=== PATIENT | male | born 1940 | race Caucasian/White ===

== ENCOUNTER → 2016-10-16 | Day surgery (SDC) | payer OTHER ==
[~2016-10-16] MED LIST: ASPI81 PO; ATOR80TA PO; CIAL5TAB PO; LACTATED RINGER'S 1000 ML INJ 1,000 ML ONE; LIDOCAINE 1%/EPINEPHrine 1:200,000 PF SOLN 30 ML VIAL ONE; LIDOCAINE 2%/EPINEPHrine PF 1:200,000 20ML SDV ONE; LISI-363 PO; MIDAZOLAM HCL 2 MG/2 ML VIAL ONE; MSM1000C4 PO; ONDANSETRON HCL 4 MG/2 ML VIAL IV PUSH ONE; PROPOFOL 200 MG/20 ML AMP IV ONE; RANE1000 PO; [UNRECOGNIZED DRUG - CODE] PO; ceFAZolin INJ 1,000 MG VIAL ONE
--- NOTE | 2016-10-17 13:44 | MP ---
cc: CHRISTOS HU M.D. DATE OF SURGERY: 10/16/2016 PREOPERATIVE DIAGNOSIS Right carpal tunnel syndrome. POSTOPERATIVE DIAGNOSIS Right carpal tunnel syndrome. PROCEDURE Right carpal tunnel release. ANESTHESIA TIVA and local. SURGEON Christos Hu MD ESTIMATED BLOOD LOSS Minimum. TOURNIQUET TIME 11 minutes. INDICATION Nanda Hernandez is a 76-year-old male with EMG document symptomatic carpal tunnel syndrome of the right hand which is refractory to conservative care. He presents now for surgical release. Risks, benefits were thoroughly discussed. No guarantees were offered. PROCEDURE The patient was brought to the operating room. He was placed under deep anesthetic and right upper extremity was prepped and draped in usual sterile fashion. Time-out was completed. We proceeded to inject local at the planned surgical incision at the base of the palm. Inflated the tourniquet to 250 and proceeded with our base of the palm incision, taken through subcutaneous tissue, spread overlying the fascial layer then split coming down to the carpal canal, released distally with a [place] protecting between the nerve and the transverse carpal ligament, we dissected under direct visualization proximally and then confirmed complete release by being able to pass small finger to the carpal canal, injected additional numbing medication on either side of the carpal canal and then proceeded to close with absorbable sutures and Steri-Strips. Sterile dressing was applied. Sof-Rol and Antelmo wrap were applied. The tourniquet was let down. The patient was awoken and returned to the recovery room in stable condition. MD PAULIE Barney/RICK /7:47 AM /1:35 PM
== END | disposition home or self-care (01) ==
LOC: ESDC 06:17
PROVIDERS: ATTEND Orthopaedic Surgery Sports Medicine
DX: G56.01 Carpal tunnel syndrome, right upper limb (principal)
CPT/HCPCS: 01810; 64721; J0690; J2250; J2405; J3010; J7120

== ENCOUNTER 2017-01-19 00:46 | Emergency (ER) | payer OTHER ==
[~2017-01-19] VITALS: Ht 170.2 cm; Wt 71.7 kg
[~2017-01-19 00:46] MED LIST changes: -LACTATED RINGER'S 1000 ML INJ 1,000 ML ONE; -LIDOCAINE 1%/EPINEPHrine 1:200,000 PF SOLN 30 ML VIAL ONE; -LIDOCAINE 2%/EPINEPHrine PF 1:200,000 20ML SDV ONE; -MIDAZOLAM HCL 2 MG/2 ML VIAL ONE; -ONDANSETRON HCL 4 MG/2 ML VIAL IV PUSH ONE; -PROPOFOL 200 MG/20 ML AMP IV ONE; -ceFAZolin INJ 1,000 MG VIAL ONE
[2017-01-19 00:53] VITALS: BP 149/68; PULSE 81; RESP 18; TEMP 98.6; O2SAT 96
[2017-01-19] MEDS ORDERED: METO25TA3 PO (01:13)
[2017-01-19] MEDS ORDERED: TRAZ50TA12 PO (01:13)
[2017-01-19] MEDS ORDERED: OMEGCAP PO (01:13)
[2017-01-19] MEDS ORDERED: ASPI-516 CHEW (01:13)
[2017-01-19] MEDS ORDERED: FAMO20TA2 PO (01:13)
[2017-01-19] MEDS ORDERED: ATOR80TA45 PO (01:13)
[2017-01-19] MEDS ORDERED: LISI-515 PO (01:13)
[2017-01-19] MEDS ORDERED: OXYMETAZOLINE HCL 0.05% 15 ML NASAL SPRAY NASAL ONE (01:15)
[2017-01-19] MEDS ORDERED: AUGM875T3 PO (01:32)
--- NOTE | 2017-01-19 01:35 | PD ---
HPI Chief Complaint: Nosebleed Time Seen by Provider: 01:11 Travel History International Travel<30 days: No Contact w/Intl Traveler<30days: No Traveled to known affect area: No History of Present Illness HPI The patient is a 77-year-old male that for 2-3 years has had nosebleeds from his left nostril. In the last month he has had over 3 nosebleeds. This year alone he has had over 12 nosebleeds. Usually he can pinch his nose for 10 minutes and it stops but tonight this 1 Bleeding. The last time he visited the emergency department he required a balloon packing. He denies any trauma. His only anticoagulant is an 81 mg aspirin daily. His nosebleeds are always on the left. He smokes about one pack a day. PFSH Past Medical History Heart Rhythm Problems: Yes (MURMUR IN THE PAST) Cardiac Catheterization: Yes Cardiovascular Problems: Yes (AORTIC VALVE REPLACEMENT-BOVINE) High Cholesterol: Yes Congestive Heart Failure: No Diabetes: No Diminished Hearing: No GERD: Yes Heparin Induced Thrombocytopen: No Hypertension: Yes Tetanus Vaccination: Unknown Influenza Vaccination: Yes Past Surgical History Cardiac Surgery: Yes Coronary Artery Bypass Graft: No Valve Replacement: Yes (AORTIC VALVE REPLACEMENT(BOVINE), 2016) Family History Family Myocardial Infarction: Yes ( 2 BROTHERS FROM HEART ATTACKS) Social History Alcohol Use: Yes (3-4 beers, daily) Tobacco Use: Yes Substance Use: No Allergies-Medications (Allergen,Severity, Reaction): Coded Allergies: nitroglycerin (Verified Adverse Reaction, Severe, Hypotension, 01/19/17) Uncoded Allergies: blood thinner unknown one (Allergy, Severe, 01/19/17) Reported Meds & Prescriptions Reported Meds & Active Scripts Active Reported [place]-3 Fish Oil/Vitamin (Fish Oil-Cholecalciferol) 1,000-1,000 Mg Cap 1 Cap PO DAILY Trazodone (Trazodone HCl) 50 Mg Tab 50 Mg PO HS Metoprolol Tartrate 25 Mg Tab 25 Mg PO BID Aspirin 81 Mg Chew 81 Mg CHEW DAILY Famotidine 20 Mg Tab 20 Mg PO BID Atorvastatin (Atorvastatin Calcium) 80 Mg Tab 80 Mg PO HS Lisinopril 20 Mg Tab 20 Mg PO DAILY Review of Systems Except as stated in HPI: all other systems reviewed are Neg Physical Exam Narrative GENERAL: Well-nourished, well-developed patient. The patient does not appear anemic. His vital signs show blood pressure 149/68 but are otherwise normal. SKIN: Focused skin assessment warm/dry. No excessive bruising is noted. HEAD: Normocephalic. EYES: No scleral icterus. No injection or drainage. NECK: Supple, trachea midline. No JVD or lymphadenopathy. CARDIOVASCULAR: Regular rate and rhythm without murmurs, gallops, or rubs. RESPIRATORY: Breath sounds equal bilaterally. No accessory muscle use. GASTROINTESTINAL: Abdomen soft, non-tender, nondistended. MUSCULOSKELETAL: No cyanosis, or edema. BACK: Nontender without obvious deformity. No CVA tenderness. ENT: The patient has an active nosebleed from his left nostril. I cannot see the area of bleeding when the nose was cleaned out. There is blood coursing down his posterior pharyngeal wall. Data Data Last Documented VS Vital Signs Date Time Temp Pulse Resp B/P (MAP) Pulse Ox O2 Delivery O2 Flow Rate FiO2 01/19/17 00:53 98.6 81 18 149/68 (95) 96 Orders Orders Oxymetazoline 0.05% Jese [place] (Afrin 0.0 (01/19/17 01:15) MDM Medical Decision Making Medical Screen Exam Complete: Yes Emergency Medical Condition: Yes Medical Record Reviewed: Yes Differential Diagnosis Recurrent epistaxis from: Repeated trauma, hemangioma, tumor, polyp Narrative Course The patient has recurrent epistaxis. It is not related to trauma. He has never seen an patent engineer and needs to see one to find out why he gets such frequent nosebleeds. His nosebleeds are all from the left nostril. Procedures Procedure Narrative A posterior (2 balloon) Rhino Rocket was put in. This immediately stopped the bleeding and the patient tolerated it well. There is now no blood coursing down the posterior pharyngeal wall. Diagnosis Primary Impression: Recurrent epistaxis Additional Instructions: As we discussed, make an appointment with an patent engineer. Hopefully, you will get an otolaryngology appointment this week. I would keep the packing in for about 3 days if you can tolerate it. The antibiotic is one tablet twice daily. Also, discontinue smoking. Med/Other Pt SpecificInfo: Prescription(s) given Scripts Amoxicillin-Clavulanate (Augmentin) 875-125 Mg Tab 1 TAB PO BID for Infection, #10 TAB 0 Refills Prov: Luis Flowers MD 01/19/17 Disposition: 01 DISCHARGE HOME Condition: Stable Luis Flowers MD Jan 19, 2017 01:35
[2017-01-19] MEDS ORDERED: AMOXICILLIN/CLAVULANATE K 875 MG TAB PO ONE (01:45)
== END 2017-01-19 01:55 | disposition home or self-care (01) ==
LOC: PHED 00:46
DX: R04.0 Epistaxis (principal); E78.00 Pure hypercholesterolemia, unspecified; I10 Essential (primary) hypertension; F17.210 Nicotine dependence, cigarettes, uncomplicated; Z79.82 Long term (current) use of aspirin; Z95.3 Presence of xenogenic heart valve
CPT/HCPCS: 30905